=== PATIENT | male | born 1965 | race Caucasian/White ===

== ENCOUNTER → 2017-09-23 | Outpatient (CLI) | payer OTHER | END | disposition home or self-care (01) | LOC: RAD 08:17 | PROVIDERS: ATTEND Physician Assistant Medical | DX: R16.1 Splenomegaly, not elsewhere classified (principal); R10.9 Unspecified abdominal pain | CPT/HCPCS: 76700 ==

== ENCOUNTER → 2018-05-31 | Outpatient (CLI) | payer OTHER | END | disposition home or self-care (01) | LOC: RAD 11:29 | PROVIDERS: ATTEND Family Medicine Adult Medicine | DX: M19.012 Primary osteoarthritis, left shoulder (principal); Z79.899 Other long term (current) drug therapy; Z88.1 Allergy status to other antibiotic agents ==